=== PATIENT | male | born 2005 | race Caucasian/White ===

== ENCOUNTER 2025-05-10 23:28 | Emergency (ER) | payer BC ==
[2025-05-11] MEDS: Alum Hydrox/Mag Hydrox/Simeth 15 ML, Lidocaine 2% 5 ML PO ONE (02:40)
== END 2025-05-11 03:11 | disposition home or self-care (01) ==
LOC: MW.ED 23:28
DX: J02.9 Acute pharyngitis, unspecified (principal); K21.9 Gastro-esophageal reflux disease without esophagitis; Z75.3 Unavailability and inaccessibility of health-care facilities
CPT/HCPCS: 87428; 87651; 99284; J3490; 99283; A9270-GY